=== PATIENT | male | born 1940 | race Two or more races ===

== ENCOUNTER 2020-01-24 16:40 | Inpatient (IN) | payer OTHER ==
[~2020-01-24] VITALS: Ht 170.2 cm; Wt 74.8 kg
[2020-01-24 18:15] LABS: Basophils # (auto) 0 10 ^3/uL (0-0.2); Eosinophils # (auto) 0.3 10 ^3/uL (0-0.8); Eosinophils % (auto) 3.4 % (0.0-7.0); Hematocrit 29.4 % (41.0-53.0); Hemoglobin 9.6 g/dL (13.5-17.5); Lymphocytes # (auto) 2.6 10 ^3/uL (0.4-5.4); Lymphocytes % (auto) 25.8 % (10.0-50.0); Mean Corpuscular Hemoglobin 29.1 pg (28.0-32.0); Mean Corpuscular Hgb Conc. 32.7 g/dL (32.0-36.0); Mean Corpuscular Volume 88.9 fL (80.0-100.0); Neutrophils % (auto) 60.8 % (37.0-80.0); Platelet Count (auto) 223 10^3/uL (140-450); Red Cell Distribution Width 13.3 % (11.8-14.3); White Blood Cell 9.9 10^3/uL (4.4-10.8)
[2020-01-24 18:34] LABS: INR 1.14 (0.9-1.15); Partial Thromboplastin Time 28.8 sec (23.0-31.2)
[2020-01-24 18:40] LABS: Albumin 3.4 g/dL (3.4-5.0); Calcium 8.2 mg/dL (8.5-10.1); Magnesium 2.3 mg/dL (1.6-2.6); Potassium 5.1 mmol/L (3.5-5.1)
[2020-01-24 18:47] LABS: BUN/Creatinine Ratio 19.5; Bilirubin, Total 0.2 mg/dL (0.2-1.0); Total Protein 8.8 g/dL (6.4-8.2)
[2020-01-24] MEDS ORDERED: SODIUM CHLORIDE 0.9% 1,000 ML IV ONE (19:45)
[2020-01-24 23:00] LABS: Urine Bacteria NONE SEEN /hpf (None Seen); Urine Blood 3+ /uL (Negative); Urine WBC 743 /hpf (0 - 3); Urine WBC Clumps PRESENT /hpf (None Seen)
[2020-01-24] MEDS ORDERED: NITROGLYCERIN 0.4 MG SL TAB SL PRN (23:45)
[2020-01-24] MEDS ORDERED: MORPHINE SULF INJ 2 MG/ML SYRINGE 1ML IV PRN (23:45)
[2020-01-25] MEDS ORDERED: HYDROcodone-ACET 10/325MG TAB PO PRN (02:00)
[2020-01-25] MEDS ORDERED: cefTRIAXone 1GM/50ML D5W 50 ML IV SCH (10:00)
[2020-01-25 11:22] LABS: Basophils # (auto) 0 10 ^3/uL (0-0.2); Basophils % (auto) 0.1 % (0.0-2.0); Eosinophils # (auto) 0.2 10 ^3/uL (0-0.8); Eosinophils % (auto) 2.7 % (0.0-7.0); Hematocrit 30.7 % (41.0-53.0); Hemoglobin 10.1 g/dL (13.5-17.5); Lymphocytes # (auto) 1.7 10 ^3/uL (0.4-5.4); Lymphocytes % (auto) 21.9 % (10.0-50.0); Mean Corpuscular Hemoglobin 29.1 pg (28.0-32.0); Mean Corpuscular Hgb Conc. 32.8 g/dL (32.0-36.0); Mean Corpuscular Volume 88.9 fL (80.0-100.0); Monocytes # (auto) 0.5 10 ^3/uL (0-1.3); Monocytes % (auto) 6.5 % (0.0-12.0); Neutrophils # (auto) 5.4 10 ^3/uL (1.6-8.6); Neutrophils % (auto) 68.8 % (37.0-80.0); Nucleated Red Blood Cells % 0.1 %; Platelet Count (auto) 240 10^3/uL (140-450); Red Blood Cells 3.45 10^6/uL (4.5-5.90); Red Cell Distribution Width 13.8 % (11.8-14.3); White Blood Cell 7.8 10^3/uL (4.4-10.8)
[2020-01-25 11:44] LABS: INR 1.14 (0.9-1.15); Partial Thromboplastin Time 26.8 sec (23.0-31.2)
[2020-01-25 12:00] LABS: Albumin 3.4 g/dL (3.4-5.0); Calcium 8.9 mg/dL (8.5-10.1); Potassium 5.1 mmol/L (3.5-5.1)
[2020-01-25 12:03] LABS: BUN/Creatinine Ratio 18.2; Bilirubin, Total 0.2 mg/dL (0.2-1.0); Total Protein 9.2 g/dL (6.4-8.2)
[2020-01-25] MEDS ORDERED: TAMS0.4C36 PO (12:36)
[2020-01-25] MEDS ORDERED: SULF400T11 PO (12:36)
[2020-01-25 14:00] VITALS: BP 124/69
== END 2020-01-25 15:16 | DRG 726 ==
LOC: EDBD 16:40 → ER 16:40 → EEVIPCON 16:41 → OVERFLOW 16:41
PROVIDERS: ADMIT Internal Medicine; ATTEND Internal Medicine
DX: N40.1 Benign prostatic hyperplasia with lower urinary tract symptoms (principal); N13.30 Unspecified hydronephrosis; N13.8 Other obstructive and reflux uropathy; N19 Unspecified kidney failure; R31.0 Gross hematuria; Z87.891 Personal history of nicotine dependence; Z90.49 Acquired absence of other specified parts of digestive tract
CPT/HCPCS: 36415; 51702; 71045; 74176; 80053; 81001; 82150; 83605; 83690; 83735; 83880; 84154; 84484; 85025; 85610; 85730; 86850; 86900; 86901; 96361; 96365; G0378; J0696

== ENCOUNTER 2020-10-29 06:50 | Observation (INO) | payer OTHER ==
[~2020-10-29 06:50] MED LIST: TAMS0.4C36 PO
[2020-10-29] MEDS ORDERED: CIPROFLOXACIN 400MG/200ML 200 ML IV ONE (07:27)
[2020-10-29] MEDS ORDERED: fentaNYL CITRATE 100 MCG/2 ML VL ONE (09:43)
[2020-10-29] MEDS ORDERED: MIDAZOLAM HCL 2MG/2ML 2ml VIAL (1mg/ml) ONE (09:44)
[2020-10-29] MEDS ORDERED: ONDANSETRON HCL 4 MG/2 ML VIAL ONE (11:04)
[2020-10-29] MEDS ORDERED: HYDROmorphone HCL 2 MG/ML VL IV PRN (11:15)
[2020-10-29] MEDS ORDERED: ONDANSETRON HCL 4 MG/2 ML VIAL IV PRN (11:15)
[2020-10-29] MEDS ORDERED: MORPHINE SULFATE INJECTION 2 MG/ML SYRG IV PRN (11:30)
[2020-10-29] MEDS: LACTATED RINGER'S 1,000 ML IV SCH ×2 (11:30→23:39)
[2020-10-29] MEDS ORDERED: NITROGLYCERIN 0.4 MG SL TAB SL PRN (11:30)
[2020-10-29 17:20] VITALS: BP 161/83
[2020-10-29 22:00] VITALS: BP 166/83
[2020-10-30 05:00] VITALS: BP 157/74
[2020-10-30 09:00] VITALS: BP 156/82
[2020-10-30 12:30] VITALS: BP 154/76
[2020-10-30 17:00] VITALS: BP 158/80
[2020-10-30] MEDS: LACTATED RINGER'S 1,000 ML IV SCH (20:50)
[2020-10-30 22:00] VITALS: BP 148/75
[2020-10-31 05:00] VITALS: BP 153/80
[2020-10-31 09:00] VITALS: BP 141/73
[2020-10-31 13:00] VITALS: BP 144/75
[2020-10-31] MEDS: LACTATED RINGER'S 1,000 ML IV SCH (13:30)
[2020-10-31 16:36] VITALS: BP 152/78
[2020-10-31 22:00] VITALS: BP 150/70
[2020-11-01 05:00] VITALS: BP 128/70
[2020-11-01] MEDS: LACTATED RINGER'S 1,000 ML IV SCH (06:10)
[2020-11-01 09:00] VITALS: BP 155/70
[2020-11-01 13:00] VITALS: BP 141/69
[2020-11-01 13:52] VITALS: BP 141/69
[2020-11-01 17:00] VITALS: BP 139/78
== END 2020-11-01 18:10 ==
LOC: SUR 06:50 → OVERFLOW 11:16 → CENTRAL 17:26
PROVIDERS: ADMIT Urology; ATTEND Urology
DX: N40.1 Benign prostatic hyperplasia with lower urinary tract symptoms (principal); N32.0 Bladder-neck obstruction; R33.8 Other retention of urine; Z90.79 Acquired absence of other genital organ(s)
CPT/HCPCS: 52601; 88305; 88342; 96360; 96361; G0378; J0744; J2250; J2405; J3010